=== PATIENT | female | born 1985 ===

== ENCOUNTER 2020-07-01 14:40 | Emergency (ER) | payer OTHER ==
[~2020-07-01] VITALS: Ht 160 cm; Wt 76.2 kg
[~2020-07-01 14:40] MED LIST: BUDESONIDE0.5 MG/2 M IH; IPRAT-ALBUT 0.5-3 ML IH; MUCINEX DM ER1 EAC1 PO; PNV-FERROUS FU1 EACH PO; TESSALON PERLE100 M1 PO; ZITHROMAX500 MG PO
== END 2020-07-01 18:33 | disposition home or self-care (01) ==
LOC: ER 14:40
DX: S81.021A Laceration with foreign body, right knee, initial encounter (principal); W18.09XA Striking against other object with subsequent fall, initial encounter; Y93.89 Activity, other specified; Y92.89 Other specified places as the place of occurrence of the external cause; Y99.8 Other external cause status

== ENCOUNTER 2020-07-09 08:57 | Emergency (ER) | payer OTHER ==
[~2020-07-09] VITALS: Ht 160 cm; Wt 74.8 kg
== END 2020-07-09 10:09 | disposition home or self-care (01) ==
LOC: ER 08:57
DX: Z48.02 Encounter for removal of sutures (principal)

== ENCOUNTER 2020-10-02 06:05 | Day surgery (SDC) | payer OTHER | END 2020-10-02 21:45 | disposition home or self-care (01) | LOC: CIR.AMB 06:05 | PROVIDERS: ATTEND Obstetrics & Gynecology | DX: Z30.2 Encounter for sterilization (principal); N73.6 Female pelvic peritoneal adhesions (postinfective); Z20.822 Contact with and (suspected) exposure to COVID-19 ==

== ENCOUNTER 2024-02-24 15:00 | Outpatient (CLI) | payer OTHER | END 2024-02-24 15:07 | disposition home or self-care (01) | LOC: RAD 15:00 | PROVIDERS: ATTEND General Practice | DX: M54.50 Low back pain, unspecified (principal); M54.31 Sciatica, right side; Z91.81 History of falling ==

== ENCOUNTER 2024-02-26 15:31 | Outpatient (CLI) | payer OTHER | END 2024-02-26 15:35 | disposition home or self-care (01) | LOC: RAD 15:31 | DX: M25.551 Pain in right hip (principal) ==

== ENCOUNTER 2024-03-08 08:12 | Outpatient (CLI) | payer OTHER | END 2024-03-08 08:19 | disposition home or self-care (01) | LOC: SONOGRAMA 08:12 | PROVIDERS: ATTEND General Practice | DX: R10.2 Pelvic and perineal pain (principal); M54.50 Low back pain, unspecified ==

== ENCOUNTER 2024-07-14 15:42 | Outpatient (CLI) | payer OTHER | END 2024-07-14 15:48 | disposition home or self-care (01) | LOC: RAD 15:42 | PROVIDERS: ATTEND General Practice | DX: M54.6 Pain in thoracic spine (principal); M54.2 Cervicalgia ==

== ENCOUNTER 2024-07-28 13:12 | Outpatient (CLI) | payer OTHER | END 2024-07-28 13:20 | disposition home or self-care (01) | LOC: MAMO-SONO 13:12 | PROVIDERS: ATTEND General Practice | DX: N60.11 Diffuse cystic mastopathy of right breast (principal); Z80.3 Family history of malignant neoplasm of breast; Z12.31 Encounter for screening mammogram for malignant neoplasm of breast ==